=== PATIENT | male | born 1995 | race Caucasian/White ===

== ENCOUNTER 2018-03-08 18:22 | Emergency (ER) | payer MEDICAID, OTHER ==
[2018-03-08 18:31] VITALS: BP 142/77
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
== END 2018-03-08 22:00 | disposition home or self-care (01) ==
LOC: EEVIPCON 18:22 → SANE 22:00
DX: S36.60XA Unspecified injury of rectum, initial encounter (principal); T74.21XA Adult sexual abuse, confirmed, initial encounter

== ENCOUNTER 2018-08-23 14:20 | Emergency (ER) | payer OTHER ==
[2018-08-23] MEDS ORDERED: LET GEL TOPICAL 1 EA SYR TP ONE (14:24)
[2018-08-23] MEDS ORDERED: SULFAMETHOX/TMP 800/160 MG 1 TAB PO ONE (14:24)
[2018-08-23] MEDS ORDERED: CEPHALEXIN 500 MG CAP PO ONE (14:24)
--- NOTE | 2018-08-23 14:34 | EDPHY ---
H & P Time Seen by Provider: 08/23/18 14:22 HPI/ROS: HPI: This Is a 22-year-old male who presents with Chief Complaint: Left axilla abscess Location: Left axilla Quality: Abscess Duration: 1 week Signs and Symptoms: No bleeding, no radiation, no numbness, no weakness, no tingling, no incontinence, no decreased range of motion, no swelling, + pain, no fever, + skin color changes Timing: Improving Severity: Moderate Context: Patient arrives accompanied by police as he is currently incarcerated and handcuffed. He complains of 1 week history of left armpit abscess. He reports that for the last 3 days he has been palpating the area and has been draining "pus." Patient is here for medical clearance at this time. No history of diabetes mellitus. No history of MRSA. Patient reports that the redness has improved as well as the size of the swelling. Modifying Factors: Incision and drainage Comment: ROS: A comprehensive 10 system review of systems is otherwise negative aside from elements mentioned in the history of present illness. MEDICAL/SURGICAL/SOCIAL HISTORY: Medical history: Generally healthy. Does not take any regular medications. Surgical history: Denies Social history: Tobacco user. CONSTITUTIONAL: Slightly anxious, young adult white male, awake and alert, no obvious distress HEENT: Atraumatic and normocephalic, PERRL, EOMI. Nares patent; no rhinorrhea; no nasal mucosal edema. Tympanic membranes clear. Oropharynx clear, no exudate and moist pink mucosa. Airway patent. No lymphadenopathy. No meningismus. Cardiovascular: Normal S1/S2, regular rate, regular rhythm, without murmur rub or gallop. PULMONARY/CHEST: Symmetrical and nontender. Clear to auscultation bilaterally. Good air movement. No accessory muscle usage. ABDOMEN: Soft, nondistended, nontender, no rebound, no guarding, no peritoneal signs, no masses or organomegaly. No CVAT. EXTREMITIES: 2/2 pulses, strength 5/5, no deformities, no clubbing, no cyanosis or edema. NEUROLOGICAL: no focal neuro deficits. GCS 15. SKIN: Warm and dry, axilla shows dried blood in the hair but no fluctuant area, no warmth, moderate tenderness, no skin breakdown. no erythema. no rash. Good capillary refill. Source: Patient, Family Exam Limitations: No limitations - Medical/Surgical History Hx Asthma: No Hx Chronic Respiratory Disease: No Hx Diabetes: No Hx Cardiac Disease: No Hx Renal Disease: No Hx Cirrhosis: No Hx Alcoholism: No Hx HIV/AIDS: No Hx Splenectomy or Spleen Trauma: No Other PMH: none - Social History Smoking Status: Heavy smoker Constitutional: Initial Vital Signs Temperature (C) 37.2 C 08/23/18 14:30 Heart Rate 62 08/23/18 14:30 Respiratory Rate 16 08/23/18 14:30 Blood Pressure 140/67 H 08/23/18 14:30 O2 Sat (%) 96 08/23/18 14:30 O2 Delivery Mode Room Air Allergies/Adverse Reactions: No Known Allergies Allergy (Unverified 03/08/18 18:27) Home Medications: Medication Instructions Recorded Cephalexin [Keflex (*)] 500 mg PO TID #21 cap 08/23/18 Sulfamethox/Tmp 800/160 mg 1 tab PO BID #14 tab 08/23/18 [Bactrim Ds] Medical Decision Making ED Course/Re-evaluation: Vital signs reviewed and stable upon arrival. Tetanus booster given No fluctuance to I and D Let topical applied and irrigated and cleaned copiously Bacitracin clean sterile dressing applied Prescription for Keflex and Bactrim given Verbal and written wound care instructions provided No signs of neurovascular compromise/tenting of skin/compartment syndrome/ extremities and joints examined above and below area of concern and are neurovascularly intact/sepsis. This patient was seen under the supervision of my secondary supervising physician. I evaluated care for this patient independently. Differential Diagnosis: Differential diagnosis includes but is not limited to abscess, cellulitis, hidradenitis suppurative - Data Points Medications Given: Discontinued Medications Cephalexin HCl (Keflex) 500 mg PO EDNOW ONE PRN Reason: Protocol Stop: 08/23/18 14:25 Last Admin: 08/23/18 15:07 Dose: 500 mg Diphtheria/Tetanus/Acell Pertussis (Boostrix) 0.5 ml IM .ONCE ONE Stop: 08/23/18 14:38 Last Admin: 08/23/18 15:06 Dose: 0.5 ml Tetracaine/Epinephrine/Lidocaine (Let Gel Topical) 1 ea TP ONCE ONE Stop: 08/23/18 14:25 Last Admin: 08/23/18 14:24 Dose: 1 ea Trimethoprim/Sulfamethoxazole (Bactrim Ds) 1 ea PO EDNOW ONE PRN Reason: Protocol Stop: 08/23/18 14:25 Last Admin: 08/23/18 15:07 Dose: 1 ea Departure - Departure Disposition: Law Enforcement/Court/Detention Clinical Impression: Abscess of left axilla Condition: Good Instructions: Cephalexin (By mouth), Sulfamethoxazole/Trimethoprim (By mouth), Abscess (ED), Warm Compress or Soak (ED) Additional Instructions: Keep the dressing dry and in place for 48 hours. After 48 hours, you may remove the dressing; wash the site daily with mild soap and water; then pat dry. Take Tylenol 650 mg every 4 hours and/or Ibuprofen 600 mg every 8 hours with food as needed for pain. Apply warm compresses for 30 minutes at a time; 2-3 times per day for the next 1 -2 days. Take antibiotics as directed. Do not skip a dose. Patient is Medically Cleared for discharge to group home. See [facility] for follow-up instructions and prescriptions. Referrals: [facility],. [Clinic] - As per Instructions Prescriptions: Cephalexin [Keflex (*)] 500 mg PO TID #21 cap Sulfamethox/Tmp 800/160 mg [Bactrim Ds] 1 tab PO BID #14 tab
[2018-08-23] MEDS ORDERED: TDAP ADULT 0.5 ML INJ (BOOSTRIX) IM ONE (14:37)
[2018-08-23 15:21] VITALS: BP 108/78
== END 2018-08-23 15:51 ==
DX: L02.412 Cutaneous abscess of left axilla (principal); Z23 Encounter for immunization